=== PATIENT | male | born 1995 | race Caucasian/White ===

== ENCOUNTER 2017-03-31 08:08 | Emergency (ER) | payer SELFPAY ==
[~2017-03-31] VITALS: Ht 182.9 cm; Wt 65.0 kg
[~2017-03-31 08:08] MED LIST: MELATONIN5 M2 PO; NAPROSYN500 MG PO; NO HOME MEDICATIONS; PHENERGAN W/CO120 M1 PO; PROMETHAZINE12.5 M5 PO; ULTRAM 50MG TAB50 MG PO; ZITHROMAX Z PA250 MG PO; ZOFRAN ODT4 MG PO
[2017-03-31 08:11] VITALS: BP 124/66; TEMP 99.3
[2017-03-31] MEDS ORDERED: CEPHALEXIN500 M1 PO (09:26)
[2017-03-31 09:32] VITALS: PULSE 92
== END 2017-03-31 09:33 | disposition home or self-care (01) ==
LOC: COL.ER 08:08
DX: J02.9 Acute pharyngitis, unspecified (principal); F17.210 Nicotine dependence, cigarettes, uncomplicated

== ENCOUNTER 2017-04-08 16:36 | Emergency (ER) | payer SELFPAY ==
[~2017-04-08] VITALS: Ht 182.9 cm; Wt 68.2 kg
[~2017-04-08 16:36] MED LIST changes: +CEPHALEXIN500 M1 PO
[2017-04-08 17:02] VITALS: BP 110/69; TEMP 97.8
[2017-04-08 17:52] VITALS: PULSE 60
== END 2017-04-08 17:52 | disposition home or self-care (01) ==
LOC: COL.ER 16:36
DX: S60.221A Contusion of right hand, initial encounter (principal); F17.210 Nicotine dependence, cigarettes, uncomplicated; W22.8XXA Striking against or struck by other objects, initial encounter

== ENCOUNTER 2017-09-13 10:42 | Emergency (ER) | payer SELFPAY ==
[~2017-09-13] VITALS: Ht 182.9 cm; Wt 71.4 kg
[2017-09-13 10:48] VITALS: BP 122/69; TEMP 98
[2017-09-13 11:41] LABS: INFLUENZA A NEGATIVE; INFLUENZA B NEGATIVE
[2017-09-13 11:48] LABS: BASO % 0.6 % (0.0-2.0); EOS # 0.3 (0.0-0.7); EOS % 6.9 % (0-4.0); GRAN # 2.6 (1.4-6.5); GRAN % 51.6 % (42.2-75.2); HEMATOCRIT 44.5 % (36.0-47.0); HEMOGLOBIN 14.9 g/dl (12.5-16.1); LYMPH # 1.7 (1.2-3.4); LYMPH % 34.7 % (20.0-51.0); MEAN CELL VOLUME 90 fl (80.0-95.0); MEAN CORPUSCULAR HEMOGLOBIN 30 pg (26.0-32.0); MEAN CORPUSCULAR HGB CONC 34 g/dl (33.0-37.0); MONO # 0.3 (0.1-0.6); PLATELET COUNT 231 K/mm3 (130-400); RED BLOOD COUNT 4.93 M/mm3 (4.20-5.60); REDCELL DISTRIBUTION WIDTH-CV 12.9 % (11.5-14.5)
[2017-09-13 12:00] LABS: BILIRUBIN,TOTAL 0.3 mg/dL (0.0-1.0); CALCIUM 9.4 mg/dL (8.4-10.2); CREATININE, serum 0.8 mg/dL (0.66-1.25); POTASSIUM 4.6 mmol/L (3.4-5.0); TOTAL PROTEIN 6.8 gm/dL (6.4-8.2)
[2017-09-13 12:27] VITALS: PULSE 52
== END 2017-09-13 12:28 | disposition home or self-care (01) ==
LOC: COL.ER 10:42
PROVIDERS: Physician Assistant
DX: B34.9 Viral infection, unspecified (principal); F17.210 Nicotine dependence, cigarettes, uncomplicated; Z88.0 Allergy status to penicillin
CPT/HCPCS: J2405; J7030

== ENCOUNTER 2017-09-28 10:20 | Emergency (ER) | payer SELFPAY ==
[~2017-09-28] VITALS: Ht 182.9 cm; Wt 68.2 kg
[2017-09-28 10:32] VITALS: BP 122/77
[2017-09-28 13:36] VITALS: PULSE 109; TEMP 100.3
== END 2017-09-28 13:35 | disposition home or self-care (01) ==
LOC: COL.ER 10:20
DX: J06.9 Acute upper respiratory infection, unspecified (principal)

== ENCOUNTER 2017-10-15 12:38 | Emergency (ER) | payer SELFPAY ==
[~2017-10-15] VITALS: Ht 182.9 cm; Wt 68.2 kg
[2017-10-15 12:41] VITALS: BP 114/60; TEMP 98.1
[2017-10-15 13:53] VITALS: PULSE 77
== END 2017-10-15 13:54 | disposition home or self-care (01) ==
LOC: COL.ER 12:38
DX: S63.91XA Sprain of unspecified part of right wrist and hand, initial encounter (principal); Y04.0XXA Assault by unarmed brawl or fight, initial encounter

== ENCOUNTER 2017-11-07 16:09 | Emergency (ER) | payer SELFPAY ==
[~2017-11-07] VITALS: Ht 182.9 cm; Wt 68.2 kg
[2017-11-07 16:11] VITALS: TEMP 97.8
[2017-11-07] MEDS ORDERED: NORCO 325 MG-51 TAB PO (17:47)
[2017-11-07] MEDS ORDERED: CLEOCIN HC150 MG/CAP PO (17:47)
[2017-11-07 17:53] VITALS: BP 121/67; PULSE 75
== END 2017-11-07 17:54 | disposition home or self-care (01) ==
LOC: COL.ER 16:09
DX: K04.7 Periapical abscess without sinus (principal); R68.84 Jaw pain; F17.210 Nicotine dependence, cigarettes, uncomplicated; F12.90 Cannabis use, unspecified, uncomplicated

== ENCOUNTER 2019-02-21 12:32 | Emergency (ER) | payer SELFPAY ==
[~2019-02-21] VITALS: Ht 182.9 cm; Wt 68.2 kg
[~2019-02-21 12:32] MED LIST changes: +CLEOCIN HC150 MG/CAP PO; +NORCO 325 MG-51 TAB PO
[2019-02-21 12:53] VITALS: BP 117/63; PULSE 86; TEMP 97
[2019-02-21] MEDS ORDERED: NORCO 325 MG-51 TAB PO (13:28)
== END 2019-02-21 14:49 | disposition home or self-care (01) ==
LOC: COL.ER 12:32
DX: S62.112A Displaced fracture of triquetrum [cuneiform] bone, left wrist, initial encounter for closed fracture (principal); F17.210 Nicotine dependence, cigarettes, uncomplicated; F12.90 Cannabis use, unspecified, uncomplicated; V00.131A Fall from skateboard, initial encounter; Y92.830 Public park as the place of occurrence of the external cause
CPT/HCPCS: Q4021

== ENCOUNTER 2022-05-02 13:17 | Emergency (ER) | payer SELFPAY ==
[~2022-05-02] VITALS: Ht 182.9 cm; Wt 72.7 kg
[2022-05-02 13:42] VITALS: BP 111/75; TEMP 97.6
[2022-05-02 14:13] VITALS: PULSE 93
== END 2022-05-02 14:18 | disposition home or self-care (01) ==
LOC: COL.ER 13:17
DX: R10.84 Generalized abdominal pain (principal); Z28.310 Unvaccinated for COVID-19